=== PATIENT | female | born 1980 | race Caucasian/White ===

== ENCOUNTER → 2022-03-22 12:58 | Outpatient (BNVA) | payer MEDICAID, SELFPAY | PROVIDERS: PCP Internal Medicine; Visit Provider Psychiatry & Neurology Neurology | DX: R26.9 Unspecified abnormalities of gait and mobility (principal); R29.898 Other symptoms and signs involving the musculoskeletal system; F09 Unspecified mental disorder due to known physiological condition; G47.9 Sleep disorder, unspecified | CPT/HCPCS: 99202 ==

== ENCOUNTER → 2022-06-28 11:03 | Outpatient (BNVA) | payer MEDICAID, SELFPAY | PROVIDERS: PCP Internal Medicine; Visit Provider Psychiatry & Neurology Neurology | DX: F09 Unspecified mental disorder due to known physiological condition (principal); R26.9 Unspecified abnormalities of gait and mobility; G47.9 Sleep disorder, unspecified; R29.898 Other symptoms and signs involving the musculoskeletal system | CPT/HCPCS: 99212 ==

== ENCOUNTER → 2022-10-06 11:00 | Outpatient (BNVA) | payer MEDICAID, SELFPAY | PROVIDERS: PCP Internal Medicine; Visit Provider Psychiatry & Neurology Neurology | DX: F09 Unspecified mental disorder due to known physiological condition (principal); R26.9 Unspecified abnormalities of gait and mobility; G47.9 Sleep disorder, unspecified; R29.898 Other symptoms and signs involving the musculoskeletal system; Z79.899 Other long term (current) drug therapy | CPT/HCPCS: 99212 ==

== ENCOUNTER → 2023-02-07 11:29 | Outpatient (BNVA) | payer OTHER, MEDICAID, SELFPAY | PROVIDERS: PCP Internal Medicine; Visit Provider Psychiatry & Neurology Neurology | DX: F09 Unspecified mental disorder due to known physiological condition (principal); R26.9 Unspecified abnormalities of gait and mobility; R29.898 Other symptoms and signs involving the musculoskeletal system; G47.9 Sleep disorder, unspecified | CPT/HCPCS: 99212 ==

== ENCOUNTER 2023-06-12 12:36 | Outpatient (AMB) | payer MEDICAID, SELFPAY ==
--- NOTE | 2023-06-12 12:42 | A.OFFVIS_ITS ---
Intake Vital Signs 06/12/23 12:43 Weight 156 lb 4 oz BP 128/80 Blood Pressure Location Rt brachial Position Sitting Pulse 70 Pulse Source Pulse Oximeter Pulse Oximetry (%) 99 Oxygen Delivery Method Room Air Intake Visit Reasons: 4 mo f/uweakness of both extremities-lvm Intake Note: Pt presents today for extremity weakness , no change Allergies adhesive tape Allergy (Mild, Verified 06/12/23 12:46) Rash latex Allergy (Mild, Verified 06/12/23 12:46) Hives HPI HPI Comments History of Present Illness Details 43y/o female comes for follow up of leg weakness,cognitive issues,sleep problems, tremors.she had poison Dorothy recently 2 weeks ago and developed an allergic reaction - was on prednisone for 9 days .Until then she was doingw ell and was able to go out of the house and work in the yard. she has not had a psychiatric evaluation yet. Gabapentin has helped her significantly with sleep. she wakes up with pain and duloxetine helps. she did not see a neuropsyhcologist. she was started on cymbalta 30mg which helped her significantly and has decreased her pain by 50 %. she will benefit from a higher dose but her insurance did not approve.Sleep is on and off.she is able to walk better when her pain is controlled Cymbalta has helped with depression and anxiety. headaches are better. she c/o dizziness since COVID. Previous history- She says everything started after she contracted URI in January 2020 - could not have the test but was given a presumptive positive diagnosis of COVID-19.She was diagnosed with long COVID since. In March 2021 after her second dose of Pfizer - she had similar respiratory symptoms, full body hives etc. She describes leg weakness in 2019, she was tripping over things and worsened since then .It started with right and progressed to involve left. She describes her whole body in throbbing, deep burning pain in muscles and joints.Heat helps the joints.No numbness or parasthesias. She has back pain and neck pain and shooting pain from back. she feels like she is being crushed. Bowel movements are stable. she always had urgency. she also has headaches .no light sensitivity , nausea . she feels like a band around the head and is closely connected to the weather. She has trouble falling asleep and staying asleep, excessive daytime sleepiness.She has difficulty shutting her thoughts. she feels better when she sleeps good.she feels like when she walking her leg has some tremors. She has some near falls and uses a walker. she still has voice difficulty. she was seen by her PCP, ENT and multiple blood work. 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 She uses cannabis flower q nightly PFSH Medical History ADD (attention deficit disorder) Cognitive disorder COVID Leg weakness Sleep disorder Surgical History Hx of breast augmentation Hx of foot surgery Hx of laparoscopy Hx of tonsillectomy Family History Father Skin cancer Bladder cancer Mother High cholesterol Social History Alcohol intake: never Patient Tobacco Use Status: Never used Tobacco Physical Exam Vital Signs: Last Vital Signs Pulse 70 06/12/23 12:43 BP 128/80 06/12/23 12:43 Pulse Ox 99 06/12/23 12:43 Oxygen Delivery Method Room Air 06/12/23 12:43 Const Orientation/consciousness: patient oriented x3 Eyes Pupils: Equal, round and reactive pupils present Neuro Other: AAOX 3- 5, 5 General: patient oriented x3, tone normal, moves all extremities and no focal motor deficits Cranial nerves: Yes CN's II-XII intact bilaterally, Yes Facial sensation intact/muscles of mastication intact, Yes Equal, round and reactive pupils present, Yes Bilaterally intact EOM present, Yes Nystagmus not present, Yes Normal facial strength present and Yes Midline tongue present Gait exam (Neuro): Other gait observations present (normal - mild antalgic ) Motor exam (neuro): 5/5 motor strength present throughout and Normal motor muscle tone present throughout Coordination: [id number] test normal Romberg Test: Negative Psych Appearance: grossly normal Speech and movement: Pressured speech present Affect: Anxious affect present Attitude: cooperative Thought process: Loose association thought process present Assessment & Plan Assessment & Plan (1) Cognitive disorder: Comment: likely related to poorly controlled mood Code(s): F09 - Unspecified mental disorder due to known physiological condition (2) Gait disorder: Code(s): R26.9 - Unspecified abnormalities of gait and mobility (3) Sleep disorder: Code(s): G47.9 - Sleep disorder, unspecified (4) Leg weakness: Comment: she is good on todays exam - the weakness is likely related to chronic myofascial pain Code(s): R29.898 - Other symptoms and signs involving the musculoskeletal system Plan She is benefitting from cymbalta 30mg Continue exercises SHe did not call psych yet Gabapentin 300mg- 400mg qhs Neuropsych evaluation for a more detailed cognitive testing.- not done yet Coding Level of Care Code Est Pt Level 4 (43437) Diagnoses Cognitive disorder F09 Gait disorder R26.9 Sleep disorder G47.9 Leg weakness R29.898
[2023-06-12 12:43] VITALS: BP 128/80; PULSE 70; O2SAT 99
== END 2023-06-12 13:10 | disposition home or self-care (01) ==
PROVIDERS: Visit Provider Psychiatry & Neurology Neurology
DX: R41.89 Other symptoms and signs involving cognitive functions and awareness (principal); R26.9 Unspecified abnormalities of gait and mobility; G47.9 Sleep disorder, unspecified; R29.898 Other symptoms and signs involving the musculoskeletal system
CPT/HCPCS: 99214

== ENCOUNTER → 2023-06-12 12:36 | Outpatient (BNVA) | payer MEDICAID, SELFPAY | PROVIDERS: Visit Provider Psychiatry & Neurology Neurology | DX: R26.9 Unspecified abnormalities of gait and mobility (principal); R29.898 Other symptoms and signs involving the musculoskeletal system; F03.93 Unspecified dementia, unspecified severity, with mood disturbance; G47.9 Sleep disorder, unspecified | CPT/HCPCS: 99212 ==

== ENCOUNTER 2023-10-12 13:48 | Outpatient (AMB) | payer MEDICAID, SELFPAY ==
--- NOTE | 2023-10-12 13:49 | A.OFFVIS_ITS ---
Intake Vital Signs 10/12/23 13:50 Height 5 ft 7 in Weight 150 lb 4 oz BMI 23.5 BP 140/84 H Blood Pressure Location Lt brachial Position Sitting Respiration 15 Pulse 80 Pulse Source Pulse Oximeter Pulse Oximetry (%) 98 Oxygen Delivery Method Room Air Intake Visit Reasons: 4 mo f/uweakness of both extremities - Conf Intake Note: pt presents for a 4 month follow up for weakness of the extremities. She reports she is better than her last visit. 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 Allergies adhesive tape Allergy (Mild, Verified 10/12/23 13:50) Rash latex Allergy (Mild, Verified 10/12/23 13:50) Hives Medication List - Last Reconciled 10/12/23 by Jessika Reinoso MD biotin 800 mcg PO DAILY coenzyme Q10 (Co Q-10) 100 mg PO DAILY cysteine (L-cysteine) 500 mg PO DAILY dextroamphetamine-amphetamine 30 mg ER (Adderall XR) 1 cap PO QAM duloxetine 120 mg (2 x 60 mg) PO DAILY epinephrine 0.3 mL IM gabapentin 1-2caps orally bedtime; 30 days multivitamin 1 tab PO DAILY turmeric mg PO vitamin B complex (B Complex-Vitamin B12 tablet) 1 tab PO DAILY HPI HPI Comments History of Present Illness Details 43y/o female comes for follow up of leg weakness,cognitive issues,sleep problems, tremors.she is doing well. she has not had a psychiatric evaluation yet. Gabapentin has helped her significantly with sleep. she wakes up with pain and duloxetine helps. she did not see a neuropsyhcologist. she was started on cymbalta 30mg which helped her significantly and has decreased her pain by 50 %. she will benefit from a higher dose but her insurance did not approve.Sleep is on and off.she is able to walk better when her pain is controlled Cymbalta has helped with depression and anxiety. headaches are better. she c/o dizziness since COVID. Previous history- She says everything started after she contracted URI in January 2020 - could not have the test but was given a presumptive positive diagnosis of COVID-19.She was diagnosed with long COVID since. In March 2021 after her second dose of Pfizer - she had similar respiratory symptoms, full body hives etc. She describes leg weakness in 2019, she was tripping over things and worsened since then .It started with right and progressed to involve left. She describes her whole body in throbbing, deep burning pain in muscles and joints.Heat helps the joints.No numbness or parasthesias. She has back pain and neck pain and shooting pain from back. she feels like she is being crushed. Bowel movements are stable. she always had urgency. she also has headaches .no light sensitivity , nausea . she feels like a band around the head and is closely connected to the weather. She has trouble falling asleep and staying asleep, excessive daytime sleepiness.She has difficulty shutting her thoughts. she feels better when she sleeps good.she feels like when she walking her leg has some tremors. She has some near falls and uses a walker. she still has voice difficulty. she was seen by her PCP, ENT and multiple blood work. 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 She uses cannabis flower q nightly PFSH Medical History ADD (attention deficit disorder) Cognitive disorder Sleep disorder Leg weakness COVID Surgical History Hx of laparoscopy Hx of foot surgery Hx of tonsillectomy Hx of breast augmentation Family History Father Skin cancer Bladder cancer Mother High cholesterol Social History Alcohol intake: never Patient Tobacco Use Status: Never used Tobacco Physical Exam Vital Signs: Last Vital Signs Pulse 80 10/12/23 13:50 Resp 15 10/12/23 13:50 BP 140/84 H 10/12/23 13:50 Pulse Ox 98 10/12/23 13:50 Oxygen Delivery Method Room Air 10/12/23 13:50 BMI result Body Mass Index 23.5 Const Orientation/consciousness: patient oriented x3 Eyes Pupils: Equal, round and reactive pupils present Neuro Other: AAOX 3- 5, 5 General: patient oriented x3, tone normal, moves all extremities and no focal motor deficits Cranial nerves: Yes CN's II-XII intact bilaterally, Yes Facial sensation intact/muscles of mastication intact, Yes Equal, round and reactive pupils pres ent, Yes Bilaterally intact EOM present, Yes Nystagmus not present, Yes Normal facial strength present and Yes Midline tongue present Gait exam (Neuro): Other gait observations present (normal - mild antalgic ) Motor exam (neuro): 5/5 motor strength present throughout and Normal motor muscle tone present throughout Coordination: [id number] test normal Romberg Test: Negative Psych Appearance: grossly normal Speech and movement: Pressured speech present Affect: Anxious affect present Attitude: cooperative Thought process: Loose association thought process present Assessment & Plan Assessment & Plan (1) Cognitive disorder: Comment: likely related to poorly controlled mood Code(s): F09 - Unspecified mental disorder due to known physiological condition (2) Gait disorder: Code(s): R26.9 - Unspecified abnormalities of gait and mobility (3) Sleep disorder: Code(s): G47.9 - Sleep disorder, unspecified (4) Leg weakness: Comment: she is good on todays exam - the weakness is likely related to chronic myofascial pain Code(s): R29.898 - Other symptoms and signs involving the musculoskeletal system Plan She is benefitting from cymbalta 60mg - increase to 120mg qd Continue exercises SHe did not call psych yet Gabapentin 600mg qhs Neuropsych evaluation for a more detailed cognitive testing.- not done yet Medications: Changed From duloxetine 60 mg PO DAILY 30 caps 6RF To duloxetine 120 mg (2 x 60 mg) PO DAILY 60 caps 6RF Coding Level of Care Code Est Pt Level 4 (56460) Diagnoses Cognitive disorder F09 Gait disorder R26.9 Sleep disorder G47.9 Leg weakness R29.898
[2023-10-12 13:50] VITALS: BP 140/84; PULSE 80; RESP 15; O2SAT 98; BMI 23.5
== END 2023-10-12 14:26 | disposition home or self-care (01) ==
PROVIDERS: PCP Internal Medicine; Visit Provider Psychiatry & Neurology Neurology
DX: R41.89 Other symptoms and signs involving cognitive functions and awareness (principal); R26.9 Unspecified abnormalities of gait and mobility; G47.9 Sleep disorder, unspecified; R29.898 Other symptoms and signs involving the musculoskeletal system
CPT/HCPCS: 99214

== ENCOUNTER → 2023-10-12 13:48 | Outpatient (BNVA) | payer MEDICAID, SELFPAY | PROVIDERS: PCP Internal Medicine; Visit Provider Psychiatry & Neurology Neurology | DX: R26.9 Unspecified abnormalities of gait and mobility (principal); R29.898 Other symptoms and signs involving the musculoskeletal system; G47.9 Sleep disorder, unspecified; F09 Unspecified mental disorder due to known physiological condition | CPT/HCPCS: 99212 ==

== ENCOUNTER → 2024-04-15 13:50 | Outpatient (BNVA) | payer MEDICAID, SELFPAY | PROVIDERS: PCP Internal Medicine; Visit Provider Psychiatry & Neurology Neurology ==

== ENCOUNTER 2024-04-15 14:16 | Outpatient (AMB) | payer MEDICAID, SELFPAY ==
--- NOTE | 2024-04-15 13:51 | A.OFFVIS_ITS ---
Intake Visit Reasons: 6 mo f/u weakness jamar ext - Confirmed Intake Note: Pt presents for follow up of jamar extremity weakness via telehealth. 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: No Allergies adhesive tape Allergy (Mild, Verified 04/15/24 13:52) Rash latex Allergy (Mild, Verified 04/15/24 13:52) Hives Medication List - Last Reconciled 04/15/24 by Jessika Reinoso MD biotin 800 mcg PO DAILY coenzyme Q10 (Co Q-10) 100 mg PO DAILY cysteine (L-cysteine) 500 mg PO DAILY dextroamphetamine-amphetamine 30 mg ER (Adderall XR) 1 cap PO QAM duloxetine 120 mg (2 x 60 mg) PO DAILY epinephrine 0.3 mL IM gabapentin 1-2caps orally bedtime; 30 days multivitamin 1 tab PO DAILY turmeric mg PO vitamin B complex (B Complex-Vitamin B12 tablet) 1 tab PO DAILY HPI Comments Details: 43y/o female calls for follow up of leg weakness,cognitive issues,sleep problems, tremors.she is doing well since last visit. she still has not seen a psychiatrist yet. Gabapentin and duloxetine has helped her significantly with sleep and pain .she is able to walk better when her pain is controlled Cymbalta has helped with depression and anxiety. headaches are better. she c/o dizziness since COVID. Previous history- She says everything started after she contracted URI in January 2020 - could not have the test but was given a presumptive positive diagnosis of COVID-19.She was diagnosed with long COVID since. In March 2021 after her second dose of Pfizer - she had similar respiratory symptoms, full body hives etc. She describes leg weakness in 2019, she was tripping over things and worsened since then .It started with right and progressed to involve left. She describes her whole body in throbbing, deep burning pain in muscles and joints.Heat helps the joints.No numbness or parasthesias. She has back pain and neck pain and shooting pain from back. she feels like she is being crushed. Bowel movements are stable. she always had urgency. she also has headaches .no light sensitivity , nausea . she feels like a band around the head and is closely connected to the weather. She has trouble falling asleep and staying asleep, excessive daytime sleepiness.She has difficulty shutting her thoughts. she feels better when she sleeps good.she feels like when she walking her leg has some tremors. She has some near falls and uses a walker. she still has voice difficulty. she was seen by her PCP, ENT and multiple blood work. 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 She uses cannabis flower q nightly PFSH Medical History ADD (attention deficit disorder) Cognitive disorder Sleep disorder Leg weakness COVID Surgical History Hx of laparoscopy Hx of foot surgery Hx of tonsillectomy Hx of breast augmentation Family History Father Skin cancer Bladder cancer Mother High cholesterol Social History Alcohol intake: never Patient Tobacco Use Status: Never used Tobacco Physical Exam Const Other: mood - stable speech - normal General: cooperative and comfortable Telehealth Telehealth Telehealth Platform: Telephone Location of provider rendering services: practice address Location of patient: address on file Patient Identification confirmed using: Name, : Yes Telehealth method: voice only Patient verbally consented to treatment: Yes Patient verbally consented to billing insurance company: Yes Patient informed of any privacy concerns related to visit: Yes Minutes spent on Phone/Video with Pt.: 16 Assessment & Plan Assessment & Plan (1) Cognitive disorder: Comment: likely related to poorly controlled mood Code(s): F09 - Unspecified mental disorder due to known physiological condition Category: Medical (2) Gait disorder: Code(s): R26.9 - Unspecified abnormalities of gait and mobility Category: Medical (3) Sleep disorder: Code(s): G47.9 - Sleep disorder, unspecified Category: Medical (4) Leg weakness: Comment: she is good on todays exam - the weakness is likely related to chronic myofascial pain Code(s): R29.898 - Other symptoms and signs involving the musculoskeletal system Category: Medical Plan She is benefitting from cymbalta 60mg bid Continue exercises Psych eval Increase Gabapentin 900mg qhs Neuropsych evaluation for a more detailed cognitive testing.- not done yet Medications: Changed From gabapentin 1-2caps orally bedtime; 30 days 60 caps 6RF To gabapentin 2-3 caps orally bedtime; 30 days 90 caps 6RF Coding Level of Care Code Tele Est Pt Level 4 (57907) Diagnoses Cognitive disorder F09 Gait disorder R26.9 Sleep disorder G47.9 Leg weakness R29.898
== END 2024-04-15 16:59 | disposition home or self-care (01) ==
PROVIDERS: PCP Internal Medicine; Visit Provider Psychiatry & Neurology Neurology
DX: R41.89 Other symptoms and signs involving cognitive functions and awareness (principal); R26.9 Unspecified abnormalities of gait and mobility; G47.9 Sleep disorder, unspecified; R29.898 Other symptoms and signs involving the musculoskeletal system
CPT/HCPCS: 99214

== ENCOUNTER 2024-12-02 12:27 | Outpatient (AMB) | payer MEDICAID, SELFPAY ==
--- NOTE | 2024-12-02 12:28 | A.OFFVIS_ITS ---
Vital Signs 12/02/24 12:37 Height 5 ft 7 in Weight 163 lb BMI 25.5 Intake Visit Reasons: 6 mo follow up Intake Note: Patient presents for 6 month follow up Allergies adhesive tape Allergy (Mild, Verified 12/02/24 12:38) Rash latex Allergy (Mild, Verified 12/02/24 12:38) Hives Medication List - Last Reconciled 12/02/24 by Jessika Reinoso MD biotin 800 mcg PO DAILY coenzyme Q10 (Co Q-10) 100 mg PO DAILY cysteine (L-cysteine) 500 mg PO DAILY dextroamphetamine-amphetamine 30 mg ER (Adderall XR) 1 cap PO QAM duloxetine 120 mg (2 x 60 mg) PO DAILY epinephrine 0.3 mL IM gabapentin 1 cap at 5pm and 3 caps at nedtime 90 days multivitamin 1 tab PO DAILY turmeric mg PO vitamin B complex (B Complex-Vitamin B12 tablet) 1 tab PO DAILY HPI Comments Details: 44y/o female comes for follow up of leg weakness,cognitive issues,sleep problems, tremors.she is doing well since last visit. she still has not seen a psychiatrist yet or neuropsychology testing.She sleeps better with gabapentin 900mg qhs Duloxetine 60mg am and noon but by 8 pm she has residual pain. Extra gabapenitn 300mg helps . .she is able to walk better when her pain is controlled. she is using walker less and is able to do more chores - painted her house. Cymbalta has helped with depression and anxiety. headaches are better. she has decreased her adderall - opens the capsule ( 30 mg) and takes 1/2 per day she had COVID 2 months ago and did well with paxlovid . Previous history- She says everything started after she contracted URI in January 2020 - could not have the test but was given a presumptive positive diagnosis of COVID-19.She was diagnosed with long COVID since. In March 2021 after her second dose of Pfizer - she had similar respiratory symptoms, full body hives etc. She describes leg weakness in 2019, she was tripping over things and worsened since then .It started with right and progressed to involve left. She describes her whole body in throbbing, deep burning pain in muscles and joints.Heat helps the joints.No numbness or parasthesias. She has back pain and neck pain and shooting pain from back. she feels like she is being crushed. Bowel movements are stable. she always had urgency. she also has headaches .no light sensitivity , nausea . she feels like a band around the head and is closely connected to the weather. She has trouble falling asleep and staying asleep, excessive daytime sleepiness.She has difficulty shutting her thoughts. she feels better when she sleeps good.she feels like when she walking her leg has some tremors. She has some near falls and uses a walker. she still has voice difficulty. she was seen by her PCP, ENT and multiple blood work. 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 She uses cannabis flower q nightly PFSH Medical History ADD (attention deficit disorder) Cognitive disorder Sleep disorder Leg weakness COVID Surgical History Hx of laparoscopy Hx of foot surgery Hx of tonsillectomy Hx of breast augmentation Family History Father Skin cancer Bladder cancer Mother High cholesterol Social History Alcohol intake: never Patient Tobacco Use Status: Never used Tobacco Physical Exam Vital Signs: BMI result Body Mass Index 25.5 Const Orientation/consciousness: patient oriented x3 Eyes Pupils: Equal, round and reactive pupils present Neuro General: patient oriented x3, tone normal, moves all extremities and no focal motor deficits Cranial nerves: Yes CN's II-XII intact bilaterally, Yes Facial sensation intact/muscles of mastication intact, Yes Equal, round and reactive pupils present, Yes Bilaterally intact EOM present, Yes Nystagmus not present, Yes Normal facial strength present and Yes Midline tongue present Gait exam (Neuro): Other gait observations present (normal - mild antalgic ) Motor exam (neuro): 5/5 motor strength present throughout and Normal motor muscle tone present throughout Coordination: [id number] test normal Romberg Test: Negative Psych Appearance: grossly normal Speech and movement: Pressured speech present Affect: Anxious affect present Attitude: cooperative Assessment & Plan Assessment & Plan (1) Cognitive disorder: Comment: likely related to poorly controlled mood Code(s): F09 - Unspecified mental disorder due to known physiological condition Category: Medical (2) Gait disorder: Code(s): R26.9 - Unspecified abnormalities of gait and mobility Category: Medical (3) Sleep disorder: Code(s): G47.9 - Sleep disorder, unspecified Category: Medical (4) Leg weakness: Comment: she is good on todays exam - the weakness is likely related to chronic myofascial pain Code(s): R29.898 - Other symptoms and signs involving the musculoskeletal system Category: Medical Qualifiers: Laterality: unspecified laterality Qualified Code(s): R29.898 - Other symptoms and signs involving the musculoskeletal system Plan She is benefitting from cymbalta 60mg bid Continue exercises Psych eval Increase Gabapentin 300mg q evening and 900mg qhs Neuropsych evaluation for a more detailed cognitive testing.- not done yet Discuss with PCP about bone density Medications: Changed From gabapentin 2-3 caps orally bedtime; 30 days 90 caps 6RF To gabapentin 1 cap at 5pm and 3 caps at nedtime 90 days 360 caps 6RF Refilled duloxetine 120 mg (2 x 60 mg) PO DAILY 60 caps 6RF Coding Level of Care Code Est Pt Level 4 (58189) Complex EM visit Add On G2211 Diagnoses Cognitive disorder F09 Gait disorder R26.9 Sleep disorder G47.9 Weakness of lower extremity, unspecified laterality R29.898 Laterality: unspecified laterality
[2024-12-02 12:37] VITALS: BMI 25.5
== END 2024-12-02 13:05 | disposition home or self-care (01) ==
PROVIDERS: PCP Internal Medicine; Visit Provider Psychiatry & Neurology Neurology
DX: R41.89 Other symptoms and signs involving cognitive functions and awareness (principal); R26.9 Unspecified abnormalities of gait and mobility; G47.9 Sleep disorder, unspecified; R29.898 Other symptoms and signs involving the musculoskeletal system
CPT/HCPCS: 99214; G2211

== ENCOUNTER → 2024-12-02 12:27 | Outpatient (BNVA) | payer MEDICAID, SELFPAY | PROVIDERS: PCP Internal Medicine; Visit Provider Psychiatry & Neurology Neurology | DX: F09 Unspecified mental disorder due to known physiological condition (principal); G47.9 Sleep disorder, unspecified; R26.9 Unspecified abnormalities of gait and mobility; R29.898 Other symptoms and signs involving the musculoskeletal system | CPT/HCPCS: 99212 ==

== ENCOUNTER 2025-06-03 11:21 | Outpatient (AMB) | payer MEDICAID, SELFPAY ==
[2025-06-03 11:24] VITALS: BP 120/80; PULSE 84; O2SAT 97; BMI 25.8
--- NOTE | 2025-06-03 11:24 | MHC.OFFVIS ---
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 Automobile Required: No Accompanied by: Self / Same As Patient Allergies adhesive tape Allergy (Mild, Verified 06/03/25 11:25) Rash latex Allergy (Mild, Verified 06/03/25 11:25) Hives Medication List - Last Reconciled 06/03/25 by Jessika Reinoso MD biotin 800 mcg PO DAILY coenzyme Q10 (Co Q-10) 100 mg PO DAILY cysteine (L-cysteine) 500 mg PO DAILY dextroamphetamine-amphetamine 30 mg ER (Adderall XR) 1 cap PO QAM duloxetine 120 mg (2 x 60 mg) PO DAILY epinephrine 0.3 mL IM gabapentin 900 mg (3 x 300 mg) PO BEDTIME 90 days multivitamin 1 tab PO DAILY topiramate 25 mg PO BEDTIME turmeric mg PO vitamin B complex (B Complex-Vitamin B12 tablet) 1 tab PO DAILY HPI Comments Details: 44y/o female comes for follow up of leg weakness,cognitive issues,sleep problems, tremors.she is doing well since last visit.she is concerned about her weight gain with gabapentin - she says its overnight weight gain - water retention.she tried to decrease gabapentin 300 mg - 3 tabs qhs . she had increased the dose to 1800mg qhs since her last visit.But decreasing dose she has the residual pain Duloxetine 60mg am and noon but by 8 pm she has residual pain. . .she is able to walk better when her pain is controlled. she is using walker less and is able to do more chores - painted her house. Cymbalta has helped with depression and anxiety. headaches are better. she has decreased her adderall - opens the capsule ( 30 mg) and takes 1/2 per day . Previous history- She says everything started after she contracted URI in January 2020 - could not have the test but was given a presumptive positive diagnosis of COVID-19.She was diagnosed with long COVID since. In March 2021 after her second dose of Pfizer - she had similar respiratory symptoms, full body hives etc. She describes leg weakness in 2019, she was tripping over things and worsened since then .It started with right and progressed to involve left. She describes her whole body in throbbing, deep burning pain in muscles and joints.Heat helps the joints.No numbness or parasthesias. She has back pain and neck pain and shooting pain from back. she feels like she is being crushed. Bowel movements are stable. she always had urgency. she also has headaches .no light sensitivity , nausea . she feels like a band around the head and is closely connected to the weather. She has trouble falling asleep and staying asleep, excessive daytime sleepiness.She has difficulty shutting her thoughts. she feels better when she sleeps good.she feels like when she walking her leg has some tremors. She has some near falls and uses a walker. she still has voice difficulty. she was seen by her PCP, ENT and multiple blood work. 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 She uses cannabis flower q nightly PFSH Medical History ADD (attention deficit disorder) Cognitive disorder Sleep disorder Leg weakness COVID Surgical History Hx of laparoscopy Hx of foot surgery Hx of tonsillectomy Hx of breast augmentation Family History Father Skin cancer Bladder cancer Mother High cholesterol Social History Alcohol intake: never Patient Tobacco Use Status: Never used Tobacco Physical Exam Vital Signs: Last Vital Signs Pulse 84 06/03/25 11:24 BP 120/80 06/03/25 11:24 Pulse Ox 97 06/03/25 11:24 Oxygen Delivery Method Room Air 06/03/25 11:24 BMI result Body Mass Index 25.8 Const Orientation/consciousness: patient oriented x3 Eyes Pupils: Equal, round and reactive pupils present Neuro General: patient oriented x3, tone normal, moves all extremities and no focal motor deficits Cranial nerves: Yes CN's II-XII intact bilaterally, Yes Facial sensation intact/muscles of mastication intact, Yes Equal, round and reactive pupils present, Yes Bilaterally intact EOM present, Yes Nystagmus not present, Yes Normal facial strength present and Yes Midline tongue present Gait exam (Neuro): Other gait observations present (normal - mild antalgic ) Motor exam (neuro): 5/5 motor strength present throughout and Normal motor muscle tone present throughout Coordination: [id number] test normal Romberg Test: Negative Psych Appearance: grossly normal Speech and movement: Pressured speech present Affect: Anxious affect present Attitude: cooperative Assessment & Plan Assessment & Plan (1) Cognitive disorder: Comment: likely related to poorly controlled mood Code(s): F09 - Unspecified mental disorder due to known physiological condition Category: Medical (2) Gait disorder: Code(s): R26.9 - Unspecified abnormalities of gait and mobility Category: Medical (3) Sleep disorder: Code(s): G47.9 - Sleep disorder, unspecified Category: Medical (4) Leg weakness: Comment: she is good on todays exam - the weakness is likely related to chronic myofascial pain Code(s): R29.898 - Other symptoms and signs involving the musculoskeletal system Category: Medical Qualifiers: Laterality: unspecified laterality Qualified Code(s): R29.898 - Other symptoms and signs involving the musculoskeletal system Plan She is benefitting from cymbalta 60mg bid Continue exercises Psych eval Decrease Gabapentin 900mg qhs Trial topiramate 25 mg qhs for residual pain Neuropsych evaluation for a more detailed cognitive testing.- not done yet Discuss with PCP about bone density Medications: New topiramate 25 mg PO BEDTIME 30 tabs 6RF Changed From gabapentin 2 cap at 5pm and 4 caps at bedtime 90 days 630 caps 1RF To gabapentin 900 mg (3 x 300 mg) PO BEDTIME 270 caps 1RF 90 days Coding Level of Care Code Est Pt Level 4 (13662) Complex EM visit Add On G2211 Diagnoses Cognitive disorder F09 Gait disorder R26.9 Sleep disorder G47.9 Weakness of lower extremity, unspecified laterality R29.898 Laterality: unspecified laterality
--- OUTSIDE RECORDS SUMMARY | 2025-06-03 12:25 | XMS_ITS | Encounter Summary ---
Author Organization [facility] Address [address] [address] Phone Care Team Providers Care Ramp Supervisor Name Role Phone Jero Conley MD Primary Care Provider [phone] Jero Conley MD Unavailable [phone] Jero Conley MD Unavailable [phone] Encounter Details Date Type Department Care Team (Latest Contact Info) Description 11/17/2019 Transcribe Orders [facility] Laboratory [address] [place] [id number] David Jack MD [address] [place] [id number] [email or web address] Bloating (Primary Dx); Outlet dysfunction constipation Social History Tobacco Use Types Packs/Day Years Used Date Smoking Tobacco: Former Smokeless Tobacco: Never Comments:last cigarette 2009 Alcohol Use Standard Drinks/Week Comments Yes 0 (1 standard drink = 0.6 oz pur e alcohol) one drink weekly Comments No Sex and Gender Information Value Date Recorded Sex Assigned at Female 07/18/2019 9:24 PM EDT Legal Sex Female 9:22 PM EDT Gender Identity Female 07/18/2019 9:24 PM EDT Sexual Orientation Straight 07/18/2019 9: 24 PM EDT Occupation Industry Job Start Date Job End Date pursuing PhD, [employer], history dept Not on file Not on file Not on file documented as of this encounter Plan of Treatment Not on file documented as of this encounter Results * (ABNORMAL) Iron and iron binding capacity (11/17/2019 11:13 AM EST) IRON 154 30 - 160 ug/dL [facility] IRON BINDING CAPACITY 297 228 - 428 ug/dL [facility] TRANSFERRIN SATURAT. 52(H) 15 - 50 % [facility] Blood 11/17/2019 11:1 3 AM EST 11/17/2019 11:17 AM EST us David Jack MD LAB BLOOD ORDERABLES Final R esult [address] [address] * Ferritin (11/17/2019 11:13 AM EST) FERRITIN 48 13 - 150 ug/L [facility] Blood 11/17/2019 11:1 3 AM EST 11/17/2019 11:17 AM EST us David Jack MD LAB BLOOD ORDERABLES Final R esult Performing Organization Address City/[facility]/ZIP Co de Phone Number [address] [address] * C-Reactive Protein (11/17/2019 11:13 AM EST) C REACTIVE PROTEIN 0.9 0.0 - 4.0 mg/L [facility] Blood 11/17/2019 11:1 3 AM EST 11/17/2019 11:17 AM EST us David Jack MD LAB BLOOD ORDERABLES Final R esult Performing Organization Address City/[facility]/ZIP Co de Phone Number [address] [address] * Comprehensive metabolic panel (11/17/2019 11:13 AM EST) SODIUM 139 133 - 146 mmol/L [facility] POTASSIUM 4.5 3.3 - 5.1 mmol/L [facility] CHLORIDE 100 96 - 108 mmol/L [facility] CO2 24 21 - 35 mmol/L [facility] BUN 19 6 - 19 mg/dL [facility] CREATININE 0.70 0.5 - 1.5 mg/dL [facility] GLUCOSE 93 70 - 99 mg/dL [facility] ALBUMIN 4.5 3.9 - 4.8 g/dL [facility] TOTAL PROTEIN 7.2 6.5 - 8.0 g/dL [facility] CALCIUM 9.7 8.4 - 10.3 mg/dL [facility] ALKALINE PHOSPHATASE 48 39 - 117 U/L [facility] TOTAL BILIRUBIN 0.5 0.0 - 1.2 mg/dL [facility] AST 22 0 - 37 U/L [facility] ALT 21 0 - 40 U/L [facility] GLOBULIN 2.7 1 - 4.8 g/dL [facility] EGFR 109 >59 mL/min/1.7 3m2 [facility] Comment:If patient is black, multiply result by 1.159. Estimated glomerular filtration rate calculated using the CKD-EPI equation. ANION GAP 20 10 - 20 mmol/L [facility] Blood 11/17/2019 11:1 3 AM EST 11/17/2019 11:17 AM EST us David Jack MD LAB BLOOD ORDERABLES Final R esult Performing Organization Address City/State/[facility] Co de Phone Number [facility] [address] [place] [address] * (ABNORMAL) CBC (11/17/2019 11:13 AM EST) WBC 5.12 3.40 - 11.20 K/uL [facility] RBC 4.61 3.80 - 4.80 M/uL [facility] HGB 13.6 12.0 - 15.0 g/dL [facility] HCT 37.9 36.0 - 46.0 % [facility] PLT 160 130 - 400 K/uL [facility] MCV 82.2 79.0 - 98.0 fL [facility] MCH 29.5 27.0 - 34.8 pg [facility] MCHC 35.9 31.5 - 36.0 g/dL [facility] RDW 12.6 10.8 - 14.6 % [facility] MPV 9.3(L) 9.4 - 12.4 fl [facility] NRBC 0.00 0.00 /100 WBCs [facility] ABSOLUTE NRBC 0.00 0.00 K/uL [facility] Blood 11/17/2019 11:1 3 AM EST 11/17/2019 11:17 AM EST us David Jack MD LAB BLOOD ORDERABLES Final R esult [facility] [address] [place] [address] documented in this encounter Visit Diagnoses Diagnosis Bloating- Primary Flatulence, eructation, and gas pain Outlet dysfunction constipation documented in this encounter Additional Health Concerns Infection Onset Date Last Indicated Resolved Time COVID-19 07/15/2024 07/15/2024 08/05/2024 1:22 AM EDT Assessment Noted Time PHQ-2 Depression Total Score: 0 08/19/20 18 2:40 PM EDT documented as of this encounter Care Teams Ramp Supervisor Relationship Specialty Start Date End Date Jero Conley MD [address] [place] [phone] [email or web address] PCP - General Internal Medicine 07/18/19 Jero Conley MD [address] [place] [phone] [email or web address] Internal Medicine 07/18/19 Jero Conley MD [address] [place] [phone] [email or web address] Insurance Assigned Provider 02/17/23 07/14/23 documented as of this encounter Additional Source Comments The information contained in this document represents components of the legal health record. It is not the complete legal health record.[facility]
== END 2025-06-03 11:52 | disposition home or self-care (01) ==
LOC: HO.HSMS 11:21
PROVIDERS: PCP Internal Medicine; Visit Provider Psychiatry & Neurology Neurology
DX: R41.89 Other symptoms and signs involving cognitive functions and awareness (principal); R26.9 Unspecified abnormalities of gait and mobility; G47.9 Sleep disorder, unspecified; R29.898 Other symptoms and signs involving the musculoskeletal system
CPT/HCPCS: 99214; G2211

== ENCOUNTER → 2025-06-03 11:21 | Outpatient (BNVA) | payer MEDICAID, SELFPAY | PROVIDERS: PCP Internal Medicine; Visit Provider Psychiatry & Neurology Neurology | DX: R26.9 Unspecified abnormalities of gait and mobility (principal); F09 Unspecified mental disorder due to known physiological condition; G47.9 Sleep disorder, unspecified; R29.898 Other symptoms and signs involving the musculoskeletal system | CPT/HCPCS: 99212 ==